=== PATIENT | male | born 1980 | race Two or more races ===

== ENCOUNTER 2024-06-04 07:37 | Day surgery (SDC) | payer OTHER ==
[2024-05-29 15:07] VITALS: BP 120/83
[~2024-06-04] VITALS: Ht 172.7 cm; Wt 64.4 kg
[~2024-06-04 07:37] MED LIST: FLECAINIDE ACE100 MG PO; TOPROL XL25 M1 PO
[2024-06-04] MEDS ORDERED: CEFAZOLIN SODIUM 1,000 MG VIAL ONE (08:53)
[2024-06-04] MEDS ORDERED: KETO10TA2 PO (10:42)
[2024-06-04] MEDS ORDERED: TRAMADOL HCL50 MG PO (10:42)
[2024-06-04] MEDS ORDERED: TYLENOL ARTHRI650 MG PO (10:42)
[2024-06-04] MEDS ORDERED: MIRALAX17 GM PO (10:42)
[2024-06-04] MEDS ORDERED: MORPHINE SULFATE 4 MG/ML VIAL IV ONE ×2 (11:40→12:10)
== END 2024-06-04 16:30 | disposition home or self-care (01) ==
LOC: CIR.AMB 07:37
PROVIDERS: ATTEND Surgery
DX: K40.90 Unilateral inguinal hernia, without obstruction or gangrene, not specified as recurrent (principal); I10 Essential (primary) hypertension; E78.5 Hyperlipidemia, unspecified; K29.70 Gastritis, unspecified, without bleeding; J32.9 Chronic sinusitis, unspecified
CPT/HCPCS: 49505; C1781

== ENCOUNTER 2025-02-11 06:00 | Day surgery (SDC) | payer OTHER ==
[~2025-02-11 06:00] MED LIST changes: +KETO10TA2 PO; +MIRALAX17 GM PO; +TRAMADOL HCL50 MG PO; +TYLENOL ARTHRI650 MG PO
== END 2025-02-11 12:25 | disposition home or self-care (01) ==
LOC: CIR.AMB 06:00
PROVIDERS: ATTEND Internal Medicine
DX: R93.5 Abnormal findings on diagnostic imaging of other abdominal regions, including retroperitoneum (principal); K86.89 Other specified diseases of pancreas; K85.00 Idiopathic acute pancreatitis without necrosis or infection